=== PATIENT | female | born 1985 | race Caucasian/White ===

== ENCOUNTER → 2020-01-12 | Outpatient (CLI) | payer BC ==
[~2020-01-12] MED LIST: CALCIUM CARBON650 M2; IBU600 MG PO; NORCO 325 MG-51 TAB PO; ORTHO TRI-CYCLE1 TAB PO; PERCOCET 325 MG1 TA2 PO; PRENATAL
== END ==
LOC: ZCOL.LAB 08:00
DX: Z20.828 Contact with and (suspected) exposure to other viral communicable diseases (principal)

== ENCOUNTER 2020-01-16 07:01 | Inpatient (IN) | payer BC ==
[2020-01-16] VITALS (30 sets, daily range): BP systolic 103–146; BP diastolic 55–98; PULSE 50–108; TEMP 97.7–98.5
[~2020-01-16] VITALS: Ht 172.7 cm; Wt 98.2 kg
--- NOTE | 2020-01-16 07:05 | NUR ---
Patient ambulatory to LR6 with spouse, changed into gown, FHR/TOCO monitors placed and explained. Patient denies any regular contractions, leaking of fluid, vaginal bleeding, decreased movement. Plan of care discussed and questions answered. 0730: IV started in left upper arm, blood obtained and to lab, LR infusing. 0745: Pitocin induction discussed and patient agrees with plan. Pitocin started at 2mU/hr. Consents signed, assessment completed, and packet given. 0820: Patient back to bed and on monitors and Dr. James at bedside. Sono done at this time and vertex position confirmed. 0825: SVE-2/50/-3 and AROM at this time with clear fluid noted. 1050: Patient sitting up for placement of epidural. Kobe Vasquez CRNA at bedside. 1105: Test dose given and patient tolerates well. 1110: Patient repositioned and plan of care/safety precautions gone over. 1130: Patient comfortable with epidural. Ballesteros catheter placed and SVE-4/100/-2 and patient right lateral with left leg resting in stirrup.
[2020-01-16 08:25] LABS: BASO % 0.2 % (0.0-2.0); EOS # 0.2 (0.0-0.7); EOS % 1.7 % (0-4.0); GRAN % 66.6 % (42.2-75.2); HEMOGLOBIN 10.6 g/dl (12.5-16.0); LYMPH # 2.1 (1.2-3.4); LYMPH % 23.7 % (20.0-51.0); MEAN CELL VOLUME 89 fl (80.0-100.0); MEAN CORPUSCULAR HEMOGLOBIN 29 pg (27.0-31.0); MEAN CORPUSCULAR HGB CONC 33 g/dl (33.0-37.0); MEAN PLATELET VOLUME 10.9 fl (7.4-10.4); MONO # 0.6 (0.1-0.6); MONO % 6.8 % (1.7-9.3); PLATELET COUNT 288 K/mm3 (130-400); RED BLOOD COUNT 3.61 M/mm3 (4.10-5.30); REDCELL DISTRIBUTION WIDTH-CV 12.6 % (11.5-14.5)
[2020-01-16 08:28] LABS: HEMATOCRIT 32.2 % (37.0-47.0)
--- NOTE | 2020-01-16 12:25 | NUR ---
Patient calling out and states shes having alot of pressure. SVE-10/100/[address] James called and notified and on the way. 1230: Dr. James at bedside and SVE per physician-complete. Ballesteros catheter removed and patient tolerates well. Patient prepped for vaginal delivery. 1235: Patient begins to push with contractions and per Dr. Wilson orders. Difficulty tracing FHR due to maternal position, this RN adjusting monitor. 1245: Spontaneous vaginal delivery of viable male-head followed by body. Infant bulb syringed and to patient abdomen and Kadi RN assumes care of . Cord clamped by physician and cut by FOB. Cord blood obtained. 1250: Spontaneous delivery of placenta and pitocin started per protocol at 333mU/hr. Fundal massage done/firm/bleeding WNL. Physician repairs laceration and removes skin tag from right inner thigh and sent to lab. Fundal massage done/firm/bleeding WNL. Patient repositioned and ice pack to perineum. Plan of care discussed.
--- NOTE | 2020-01-16 15:20 | NUR ---
Patient sits on edge of bed and ambulates to bathroom with standby assist. Unable to void, pericare done, new gown/underwear/icepack on. Patient ambulates to new room and oriented to room. Plan of care discussed.
[2020-01-17 01:00] VITALS: BP 119/63; PULSE 81; TEMP 98.1
[2020-01-17 06:39] LABS: HEMATOCRIT 27.3 % (37.0-47.0); HEMOGLOBIN 9.2 g/dl (12.5-16.0)
[2020-01-17 08:20] VITALS: BP 109/57; PULSE 79; TEMP 98.4
[2020-01-17] MEDS ORDERED: IBU600 MG PO (08:45)
--- NOTE | 2020-01-17 09:22 | NUR ---
Initial visit; Parents thanked [employer] Specialist for offering congratulations and God's blessings for the of their son. [employer] Specialist thanked family for choosing [facility].
[2020-01-17 11:30] VITALS: BP 110/68; PULSE 82; TEMP 98.3
== END 2020-01-17 14:40 | disposition home or self-care (01) | DRG 807 ==
LOC: LDR 07:01 → OB 10:06
PROVIDERS: ADMIT Obstetrics & Gynecology
PROC: 10E0XZZ Delivery of Products of Conception, External Approach (ICD-10-PCS; principal; 2020-01-17)
PROC: 0KQM0ZZ Repair Perineum Muscle, Open Approach (ICD-10-PCS; 2020-01-17)
DX: O99.62 Diseases of the digestive system complicating childbirth (principal); Z37.0 Single live birth; O70.1 Second degree perineal laceration during delivery; O75.89 Other specified complications of labor and delivery; K21.9 Gastro-esophageal reflux disease without esophagitis; O99.02 Anemia complicating childbirth; D64.9 Anemia, unspecified; Z3A.39 39 weeks gestation of pregnancy
CPT/HCPCS: J2590; J2795; J7120